=== PATIENT | female | born 1935 | race Caucasian/White ===

== ENCOUNTER 2016-07-24 11:42 | Emergency (ER) | payer OTHER ==
[~2016-07-24] VITALS: Ht 160 cm; Wt 60.0 kg
[~2016-07-24 11:42] MED LIST: AGGRENOX1 CAPSULE PO; CADUET 5/201 TABLET PO; CLONAZEPAM0.5 M1 PO; EXELON PATCH4.6 MG TD; EXELON PATCH9.5 MG TD; GLUCOPHAGE1000 MG PO; LASIX10 MG PO; LEVOTHYROXINE100 MCG PO; PAROXETINE HCL20 MG PO; PRINIVIL40 MG PO; TOPROL XL100 MG PO; ZOFRAN ODT4 MG PO
[2016-07-24 12:28] LABS: EOSINOPHIL (%) 0.2 % (0-5); HEMATOCRIT 39.6 % (36.0-46.0); IMMATURE GRANULOCYTE (%) 0.4 % (0.0-0.7); INSTRUMENT ABS NEUTROPHIL CT 7.5 K/uL; LYMPHOCYTE COUNT 0.6 K/uL (1.0-2.8); MCH 27.9 PG (29.0-34.0); MCHC 33.1 G/DL (30.0-36.0); MCV 84.3 FL (83-99); MEAN PLAT.VOLUME 10.2 uM^3 (9.5-12.4); MONOCYTE COUNT 0.7 K/uL (0-0.8); NEUTROPHIL (%) 83.8 % (45-76); NEUTROPHIL COUNT 7.5 K/uL (1.8-6.4); PLATELET COUNT 269 K/uL (156-360); RBC DIS.WIDTH-CV 12.8 % (11.8-14.6); RBC DIS.WIDTH-SD 39.4 % (39-53); WHITE BLOOD COUNT 8.9 K/uL (4.1-10.2)
[2016-07-24 12:42] LABS: ADD MIUA? YES; BILIRUBIN NEGATIVE; BLOOD NEGATIVE; COLOR YELLOW ((YELLOW)); GLUCOSE (STRIP) NEGATIVE; KETONES NEGATIVE; LEUKOCYTES NEGATIVE; NITRITE NEGATIVE; PROTEIN (STRIP) 100; SPECIFIC GRAVITY 1.012 (1.000-1.030); UROBILINOGEN 0.2 MG/DL (0.2-1.0)
[2016-07-24 12:47] LABS: BACTERIA NONE SEEN /HPF; EPITHELIAL CELLS NONE SEEN /HPF; MUCUS TRACE /LPF; RED BLOOD CELLS 0-5 /HPF (0-5); UCUL ADDED? NO; WHITE BLOOD CELLS 0-5 /HPF (0-5)
[2016-07-24 12:59] LABS: ANION GAP 13 MEQ/L (2-14); CHLORIDE 95 MEQ/L (99-109); GFR ESTIMATE (CALCULATED) 57 mL/min/; GLUCOSE 162 mg/dL (70-99); POTASSIUM 2.9 MEQ/L (3.7-5.4); SAMPLE HEMOLYSIS CHECK 0; SAMPLE ICTERIC CHECK 0; SAMPLE LIPEMIA CHECK 0; SODIUM 139 MEQ/L (136-147); UREA NITROGEN (BUN) 15 mg/dL (9-23)
[2016-07-24] MEDS ORDERED: [UNRECOGNIZED DRUG - OTHER] PO (14:07)
[2016-07-24] MEDS ORDERED: [UNRECOGNIZED DRUG - OTHER] PO (14:07)
[2016-07-24] MEDS ORDERED: LASIX40 MG PO (14:08)
[2016-07-24] MEDS ORDERED: PLAVIX75 MG PO (14:08)
[2016-07-24] MEDS ORDERED: TRAMADOL HCL50 MG PO (14:09)
[2016-07-24] MEDS ORDERED: AMLODIPINE BESY10 MG PO (14:09)
[2016-07-24] MEDS ORDERED: ATORVASTATIN CA20 MG PO (14:10)
[2016-07-24] MEDS ORDERED: PAROXETINE HCL40 MG PO (14:10)
[2016-07-24] MEDS ORDERED: CLOPIDOGREL75 MG PO (14:10)
[2016-07-24] MEDS ORDERED: PRIMIDONE50 MG PO (14:11)
[2016-07-24] MEDS ORDERED: NAMZARIC 28 MG1 EACH PO (14:11)
[2016-07-24] MEDS ORDERED: K-DUR20 MEQ PO (14:22)
[2016-07-24 14:40] VITALS: BP 148/82
== END 2016-07-24 15:15 | disposition home or self-care (01) ==
LOC: EME 11:42
PROVIDERS: Emergency Medicine
DX: S09.90XA Unspecified injury of head, initial encounter (principal); E87.6 Hypokalemia; W06.XXXA Fall from bed, initial encounter; Y92.009 Unspecified place in unspecified non-institutional (private) residence as the place of occurrence of the external cause; E11.9 Type 2 diabetes mellitus without complications; I10 Essential (primary) hypertension; I25.2 Old myocardial infarction; E03.9 Hypothyroidism, unspecified; Z86.73 Personal history of transient ischemic attack (TIA), and cerebral infarction without residual deficits; F03.90 Unspecified dementia, unspecified severity, without behavioral disturbance, psychotic disturbance, mood disturbance, and anxiety; Z88.5 Allergy status to narcotic agent; Z88.0 Allergy status to penicillin; Z88.6 Allergy status to analgesic agent; Z79.84 Long term (current) use of oral hypoglycemic drugs
CPT/HCPCS: 70450; 80048; 81003; 85025; 93005; 99281; 99284

== ENCOUNTER 2016-09-01 18:33 | Emergency (ER) | payer OTHER ==
[~2016-09-01] VITALS: Ht 157.5 cm; Wt 58.7 kg
[~2016-09-01 18:33] MED LIST changes: +AMLODIPINE BESY10 MG PO; +ATORVASTATIN CA20 MG PO; +CLOPIDOGREL75 MG PO; +K-DUR20 MEQ PO; +LASIX40 MG PO; +NAMZARIC 28 MG1 EACH PO; +PAROXETINE HCL40 MG PO; +PLAVIX75 MG PO; +PRIMIDONE50 MG PO; +TRAMADOL HCL50 MG PO; +[UNRECOGNIZED DRUG - OTHER] PO; +[UNRECOGNIZED DRUG - OTHER] PO
[2016-09-01 18:38] VITALS: BP 163/80
[2016-09-01 19:31] LABS: HEMATOCRIT 39.3 % (36.0-46.0); MCH 28.5 PG (29.0-34.0); MCHC 33.6 G/DL (30.0-36.0); MCV 84.9 FL (83-99); MEAN PLAT.VOLUME 10.5 uM^3 (9.5-12.4); PLATELET COUNT 292 K/uL (156-360); RBC DIS.WIDTH-CV 14.7 % (11.8-14.6); RBC DIS.WIDTH-SD 45.1 % (39-53); RED BLOOD COUNT 4.63 M/uL (3.80-5.20); WHITE BLOOD COUNT 12.6 K/uL (4.1-10.2)
[2016-09-01 19:44] LABS: CHLORIDE 96 mEq/L (99-109); POTASSIUM 3.3 mEq/L (3.7-5.4); SODIUM 138 mEq/L (136-147)
[2016-09-01 19:46] LABS: GLUCOSE 203 mg/dL (70-99)
[2016-09-01 19:47] LABS: ANION GAP 15 MEQ/L (2-14)
[2016-09-01 19:48] LABS: TOTAL BILIRUBIN 0.4 mg/dL (0.0-1.0)
[2016-09-01 19:49] LABS: ALKALINE PHOSPHATASE 89 IU/L (3-129)
[2016-09-01 19:50] LABS: GFR ESTIMATE (CALCULATED) 42 mL/min/
[2016-09-01 19:51] LABS: UREA NITROGEN (BUN) 25 mg/dL (9-23)
[2016-09-01 19:58] LABS: TROP-I INTERPRETATION NEGATIVE; TROPONIN-I < 0.01 ng/mL (0.0-0.30)
[2016-09-01 21:42] LABS: ADD MIUA? YES; BILIRUBIN NEGATIVE; BLOOD NEGATIVE; COLOR AMBER ((YELLOW)); GLUCOSE (STRIP) NEGATIVE; KETONES NEGATIVE; LEUKOCYTES MODERATE; NITRITE NEGATIVE; PROTEIN (STRIP) 100; SPECIFIC GRAVITY 1.016 (1.000-1.030); UROBILINOGEN 0.2 MG/DL (0.2-1.0)
[2016-09-01 21:56] LABS: BACTERIA 1+ /HPF; EPITHELIAL CELLS RARE /HPF; HYALINE CASTS 0-5 /LPF; MUCUS TRACE /LPF; RED BLOOD CELLS 0-5 /HPF (0-5); UCUL ADDED? NO; UNCLASSIFIED CASTS 0-5 /LPF; WHITE BLOOD CELLS 30-40 /HPF (0-5)
[2016-09-01] MEDS ORDERED: LEVAQUIN500 MG PO (22:27)
== END 2016-09-01 23:04 | disposition home or self-care (01) ==
LOC: EME 18:33
PROVIDERS: Physician Assistant Medical
DX: N39.0 Urinary tract infection, site not specified (principal); E87.6 Hypokalemia; M79.601 Pain in right arm; I10 Essential (primary) hypertension; E07.9 Disorder of thyroid, unspecified; E11.9 Type 2 diabetes mellitus without complications; Z79.84 Long term (current) use of oral hypoglycemic drugs; Z79.02 Long term (current) use of antithrombotics/antiplatelets
CPT/HCPCS: 71010; 80053; 81003; 84484; 85027; 93005; 99281; 99285; J7030

== ENCOUNTER 2016-09-19 20:41 | Emergency (ER) | payer OTHER ==
[~2016-09-19] VITALS: Ht 157.5 cm; Wt 58.1 kg
[~2016-09-19 20:41] MED LIST changes: +LEVAQUIN500 MG PO
[2016-09-19] MEDS ORDERED: KEFLEX500 MG PO (22:38)
[2016-09-19 22:52] VITALS: BP 160/75
== END 2016-09-19 22:58 | disposition home or self-care (01) ==
LOC: EME 20:41
DX: L03.116 Cellulitis of left lower limb (principal); E11.9 Type 2 diabetes mellitus without complications; I10 Essential (primary) hypertension; I25.2 Old myocardial infarction; Z86.73 Personal history of transient ischemic attack (TIA), and cerebral infarction without residual deficits; Z79.84 Long term (current) use of oral hypoglycemic drugs
CPT/HCPCS: 93971; 99281; 99283

== ENCOUNTER 2017-11-09 17:53 | Inpatient (IN) | payer OTHER ==
[~2017-11-09] VITALS: Ht 154.9 cm; Wt 89.6 kg
[~2017-11-09 17:53] MED LIST changes: +KEFLEX500 MG PO
[2017-11-09 18:20] LABS: HEMATOCRIT 36.7 % (36.0-46.0); HEMOGLOBIN 12.1 G/DL (11.9-15.5); MCH 28.2 PG (29.0-34.0); MCV 85.5 FL (83-99); PLATELET COUNT 393 K/uL (156-360); RBC DIS.WIDTH-SD 40.4 % (39-53); RED BLOOD COUNT 4.29 M/uL (3.80-5.20); WHITE BLOOD COUNT 14.8 K/uL (4.1-10.2)
[2017-11-09 18:31] LABS: CHLORIDE 102 mEq/L (99-109); POTASSIUM 3.5 mEq/L (3.7-5.4); SODIUM 140 mEq/L (136-147)
[2017-11-09 18:32] LABS: GLUCOSE 158 mg/dL (70-99)
[2017-11-09 18:36] LABS: CREATININE 1.5 mg/dL (0.6-1.3); GFR ESTIMATE (CALCULATED) 36 mL/min/
[2017-11-09 18:37] LABS: UREA NITROGEN (BUN) 19 mg/dL (9-23)
[2017-11-09 21:05] LABS: APPEARANCE TURBID ((CLEAR)); BILIRUBIN NEGATIVE; COLOR RED ((YELLOW)); GLUCOSE (STRIP) NEGATIVE; KETONES NEGATIVE; LEUKOCYTES NEGATIVE; NITRITE NEGATIVE; PROTEIN (STRIP) >=500; SPECIFIC GRAVITY 1.025 (1.000-1.030); UROBILINOGEN 0.2 MG/DL (0.2-1.0)
[2017-11-09 21:06] LABS: BLOOD LARGE; RED BLOOD CELLS TNTC /HPF (0-5); UCUL ADDED? YES
[2017-11-09 21:12] LABS: INTER. NORMALIZED RATIO 1.2
[2017-11-09 21:14] LABS: PTT 29.5 SEC (25-37)
[2017-11-10 03:53] VITALS: BP 196/84
[2017-11-10 04:29] VITALS: BP 148/72
[2017-11-10 06:13] LABS: HEMATOCRIT 34.5 % (36.0-46.0); HEMOGLOBIN 11.3 G/DL (11.9-15.5); MCH 27.7 PG (29.0-34.0); MCHC 32.8 G/DL (30.0-36.0); MCV 84.6 FL (83-99); PLATELET COUNT 367 K/uL (156-360); RBC DIS.WIDTH-CV 13.2 % (11.8-14.6); RBC DIS.WIDTH-SD 40.8 % (39-53); RED BLOOD COUNT 4.08 M/uL (3.80-5.20)
[2017-11-10 06:42] LABS: CHLORIDE 103 MEQ/L (99-109); CREATININE 1.4 MG/DL (0.6-1.3); GFR ESTIMATE (CALCULATED) 38 mL/min/; GLUCOSE 173 mg/dL (70-99); POTASSIUM 3.5 MEQ/L (3.7-5.4); SODIUM 141 MEQ/L (136-147); UREA NITROGEN (BUN) 22 mg/dL (9-23)
[2017-11-10 07:07] VITALS: BP 141/77
[2017-11-10] MEDS ORDERED: KLOR-CON M2020 MEQ PO (14:33)
[2017-11-10] MEDS ORDERED: LOPRESSOR50 MG PO (15:20)
[2017-11-10 15:29] VITALS: BP 118/56
[2017-11-10] MEDS ORDERED: NORVASC5 MG PO (15:29)
[2017-11-10] MEDS ORDERED: TRAZODONE HCL50 MG PO (15:29)
[2017-11-10] MEDS ORDERED: ARICEPT10 MG PO (15:29)
[2017-11-10] MEDS ORDERED: AVAPRO150 MG PO (15:30)
[2017-11-10 15:33] VITALS: BP 157/67
[2017-11-10 18:47] LABS: HEMATOCRIT 32.3 % (36.0-46.0); HEMOGLOBIN 10.9 G/DL (11.9-15.5); MCV 83.9 FL (83-99)
[2017-11-10 23:12] LABS: HEMATOCRIT 31.2 % (36.0-46.0); HEMOGLOBIN 10.5 G/DL (11.9-15.5); MCV 83.9 FL (83-99)
[2017-11-11 00:16] VITALS: BP 168/77
[2017-11-11 06:31] LABS: HEMATOCRIT 33.4 % (36.0-46.0); MCH 27.9 PG (29.0-34.0); MCHC 32.9 G/DL (30.0-36.0); MCV 84.8 FL (83-99); PLATELET COUNT 356 K/uL (156-360); RBC DIS.WIDTH-CV 13.1 % (11.8-14.6); RBC DIS.WIDTH-SD 40.3 % (39-53); RED BLOOD COUNT 3.94 M/uL (3.80-5.20); WHITE BLOOD COUNT 11.7 K/uL (4.1-10.2)
[2017-11-11 06:43] VITALS: BP 199/88
[2017-11-11 06:52] LABS: CHLORIDE 105 MEQ/L (99-109); CREATININE 1.3 MG/DL (0.6-1.3); GFR ESTIMATE (CALCULATED) 42 mL/min/; GLUCOSE 159 mg/dL (70-99); POTASSIUM 3.7 MEQ/L (3.7-5.4); SODIUM 142 MEQ/L (136-147); UREA NITROGEN (BUN) 17 mg/dL (9-23)
[2017-11-11 15:10] LABS: HEMATOCRIT 35.2 % (36.0-46.0); HEMOGLOBIN 11.6 G/DL (11.9-15.5); MCV 85.4 FL (83-99)
[2017-11-11 15:56] VITALS: BP 137/70
[2017-11-11 20:07] VITALS: BP 117/81
[2017-11-11 23:49] LABS: HEMATOCRIT 33.9 % (36.0-46.0); HEMOGLOBIN 11.4 G/DL (11.9-15.5); MCV 84.8 FL (83-99)
[2017-11-12] VITALS (8 sets, daily range): BP systolic 152–199; BP diastolic 69–90
[2017-11-12 05:47] LABS: HEMATOCRIT 34.4 % (36.0-46.0); HEMOGLOBIN 11.1 G/DL (11.9-15.5); MCV 84.5 FL (83-99)
[2017-11-13 05:57] LABS: HEMOGLOBIN 11.4 G/DL (11.9-15.5); MCH 27.2 PG (29.0-34.0); MCHC 31.7 G/DL (30.0-36.0); MCV 85.9 FL (83-99); PLATELET COUNT 395 K/uL (156-360); RBC DIS.WIDTH-CV 13.3 % (11.8-14.6); RBC DIS.WIDTH-SD 41.6 % (39-53); RED BLOOD COUNT 4.19 M/uL (3.80-5.20); WHITE BLOOD COUNT 10.6 K/uL (4.1-10.2)
[2017-11-13 06:18] LABS: CHLORIDE 106 MEQ/L (99-109); CREATININE 1.2 MG/DL (0.6-1.3); GFR ESTIMATE (CALCULATED) 46 mL/min/; GLUCOSE 178 mg/dL (70-99); POTASSIUM 4.1 MEQ/L (3.7-5.4); SODIUM 143 MEQ/L (136-147); UREA NITROGEN (BUN) 21 mg/dL (9-23)
[2017-11-13 07:02] VITALS: BP 161/72
[2017-11-13 15:41] VITALS: BP 151/70
[2017-11-13 23:54] VITALS: BP 168/71
[2017-11-14 02:52] VITALS: BP 161/72
[2017-11-14 05:19] VITALS: BP 168/80
[2017-11-14 07:00] VITALS: BP 148/72
[2017-11-14 15:37] VITALS: BP 176/83
[2017-11-14 17:30] VITALS: BP 161/90
[2017-11-15] VITALS (7 sets, daily range): BP systolic 143–187; BP diastolic 66–77
[2017-11-16 06:40] LABS: HEMATOCRIT 33.3 % (36.0-46.0); HEMOGLOBIN 10.6 G/DL (11.9-15.5); MCH 27.9 PG (29.0-34.0); MCHC 31.8 G/DL (30.0-36.0); MCV 87.6 FL (83-99); PLATELET COUNT 339 K/uL (156-360); RBC DIS.WIDTH-CV 13.5 % (11.8-14.6); RBC DIS.WIDTH-SD 43.2 % (39-53); WHITE BLOOD COUNT 10.8 K/uL (4.1-10.2)
[2017-11-16 07:02] VITALS: BP 160/77
[2017-11-16 07:07] LABS: CHLORIDE 106 MEQ/L (99-109); CREATININE 1.5 MG/DL (0.6-1.3); GFR ESTIMATE (CALCULATED) 36 mL/min/; GLUCOSE 153 mg/dL (70-99); SODIUM 141 MEQ/L (136-147); UREA NITROGEN (BUN) 28 mg/dL (9-23)
[2017-11-16] MEDS ORDERED: AMLODIPINE BESY10 MG PO (14:26)
== END 2017-11-16 16:33 | disposition home or self-care (01) | DRG 669 ==
LOC: EME 17:53 → 5EAST 11-10 02:19 → EDOF 11-10 02:19 → ENRESERV 11-10 02:20 → 5EAST 11-10 03:48
PROVIDERS: Emergency Medicine; Hospitalist; Nurse Practitioner Adult Health; Physician Assistant; Student in an Organized Health Care Education/Training Program
PROC: 0TBB8ZZ Excision of Bladder, Via Natural or Artificial Opening Endoscopic (ICD-10-PCS; principal; 2017-11-15)
DX: C67.8 Malignant neoplasm of overlapping sites of bladder (principal); N17.9 Acute kidney failure, unspecified; N13.1 Hydronephrosis with ureteral stricture, not elsewhere classified; R31.0 Gross hematuria; I69.354 Hemiplegia and hemiparesis following cerebral infarction affecting left non-dominant side; E87.6 Hypokalemia; E11.22 Type 2 diabetes mellitus with diabetic chronic kidney disease; I12.9 Hypertensive chronic kidney disease with stage 1 through stage 4 chronic kidney disease, or unspecified chronic kidney disease; N18.1 Chronic kidney disease, stage 1; R59.0 Localized enlarged lymph nodes; I25.10 Atherosclerotic heart disease of native coronary artery without angina pectoris; E78.5 Hyperlipidemia, unspecified; E03.9 Hypothyroidism, unspecified; G30.9 Alzheimer's disease, unspecified; F02.80 Dementia in other diseases classified elsewhere, unspecified severity, without behavioral disturbance, psychotic disturbance, mood disturbance, and anxiety; Z96.659 Presence of unspecified artificial knee joint; E66.9 Obesity, unspecified; Z68.37 Body mass index [BMI] 37.0-37.9, adult; I25.2 Old myocardial infarction; Z79.02 Long term (current) use of antithrombotics/antiplatelets; Z79.84 Long term (current) use of oral hypoglycemic drugs; Z87.440 Personal history of urinary (tract) infections
CPT/HCPCS: 71250; 74176; 80048; 81003; 82948; 84132; 85014; 85018; 85027; 85610; 85730; 86850; 86900; 86901; 87086; 88305; 93005; 97530 GO; 99281; 99285; J0360; J0690; J0696; J1815; J2405; J3010; J7030

== ENCOUNTER 2017-12-18 18:27 | Emergency (ER) | payer OTHER ==
[~2017-12-18] VITALS: Ht 160 cm; Wt 72.8 kg
[~2017-12-18 18:27] MED LIST changes: +ARICEPT10 MG PO; +AVAPRO150 MG PO; +DILAUDID2 MG PO; +KLOR-CON M2020 MEQ PO; +LOPRESSOR50 MG PO; +MULTI VITAMIN1 EACH PO; +NORVASC5 MG PO; +TRAZODONE HCL50 MG PO; +TYLENOL EXTRA500 MG PO; +VITAMIN D31000 UNI2 PO
[2017-12-18 20:35] LABS: APPEARANCE CLEAR ((CLEAR)); BILIRUBIN NEGATIVE; BLOOD NEGATIVE; COLOR YELLOW ((YELLOW)); GLUCOSE (STRIP) NEGATIVE; KETONES NEGATIVE; LEUKOCYTES MODERATE; NITRITE POSITIVE; PROTEIN (STRIP) NEGATIVE; SPECIFIC GRAVITY 1.011 (1.000-1.030); UROBILINOGEN 0.2 MG/DL (0.2-1.0)
[2017-12-18 20:50] LABS: ALBUMIN 3.4 g/dL (3.2-4.8); CHLORIDE 108 mEq/L (99-109); POTASSIUM 4.7 mEq/L (3.7-5.4); SODIUM 139 mEq/L (136-147)
[2017-12-18 20:52] LABS: GLUCOSE 146 mg/dL (70-99); TOTAL PROTEIN 6.7 g/dL (6.4-8.3)
[2017-12-18 20:54] LABS: TOTAL BILIRUBIN 0.4 mg/dL (0.0-1.0)
[2017-12-18 20:56] LABS: ALKALINE PHOSPHATASE 134 IU/L (3-129); CREATININE 1.9 mg/dL (0.6-1.3); GFR ESTIMATE (CALCULATED) 27 mL/min/
[2017-12-18 20:57] LABS: UREA NITROGEN (BUN) 26 mg/dL (9-23)
[2017-12-18 20:58] LABS: AST (GOT) 14 IU/L (2-34)
[2017-12-18 20:59] LABS: ALT (GPT) 7 IU/L (3-49)
[2017-12-18 21:14] LABS: BACTERIA 3+ /HPF; EPITHELIAL CELLS RARE /HPF; MUCUS NONE SEEN /LPF; RED BLOOD CELLS 0-5 /HPF (0-5); WHITE BLOOD CELLS 0-5 /HPF (0-5)
[2017-12-18 21:17] LABS: BASOPHIL (%) 0.7 % (0-1); BASOPHIL COUNT 0.1 K/uL (0-0.1); EOSINOPHIL (%) 1.9 % (0-5); EOSINOPHIL COUNT 0.3 K/uL (0-0.3); HEMOGLOBIN 10.6 G/DL (11.9-15.5); IMMATURE GRANULOCYTE (%) 0.5 % (0.0-0.7); LYMPHOCYTE (%) 6.7 % (15-42); LYMPHOCYTE COUNT 0.9 K/uL (1.0-2.8); MCH 26.9 PG (29.0-34.0); MCHC 32.1 G/DL (30.0-36.0); MCV 83.8 FL (83-99); MONOCYTE (%) 5.7 % (3-12); MONOCYTE COUNT 0.8 K/uL (0-0.8); NEUTROPHIL (%) 84.5 % (45-76); NEUTROPHIL COUNT 11.5 K/uL (1.8-6.4); PLATELET COUNT 362 K/uL (156-360); RBC DIS.WIDTH-CV 13.7 % (11.8-14.6); RBC DIS.WIDTH-SD 41.7 % (39-53); RED BLOOD COUNT 3.94 M/uL (3.80-5.20); WHITE BLOOD COUNT 13.7 K/uL (4.1-10.2)
[2017-12-18] MEDS ORDERED: KEFLEX500 MG PO (22:42)
[2017-12-19 00:15] VITALS: BP 165/97
== END 2017-12-19 00:15 | disposition home or self-care (01) ==
LOC: EME 18:27
PROVIDERS: Emergency Medicine
DX: N39.0 Urinary tract infection, site not specified (principal); R41.82 Altered mental status, unspecified; C67.9 Malignant neoplasm of bladder, unspecified; N13.30 Unspecified hydronephrosis; Z86.73 Personal history of transient ischemic attack (TIA), and cerebral infarction without residual deficits; I10 Essential (primary) hypertension; I25.2 Old myocardial infarction; G30.9 Alzheimer's disease, unspecified; F02.80 Dementia in other diseases classified elsewhere, unspecified severity, without behavioral disturbance, psychotic disturbance, mood disturbance, and anxiety; Z66 Do not resuscitate; F41.9 Anxiety disorder, unspecified; E07.9 Disorder of thyroid, unspecified; Z88.0 Allergy status to penicillin; Z88.5 Allergy status to narcotic agent; Z88.6 Allergy status to analgesic agent
CPT/HCPCS: 70450; 71250; 74176; 80053; 81003; 82140; 85025; 99281; 99285; J0696; J1170; J2405; J7050